=== PATIENT | female | born 1970 | race Caucasian/White ===

== ENCOUNTER 2017-01-21 12:34 | Day surgery (SDC) | payer MEDICAID ==
[2017-01-21] MEDS ORDERED: LR 1,000 ML IV ONE (12:57)
[2017-01-21] MEDS ORDERED: LIDOCAINE 1% 2 ML INJ ID PRN (12:57)
[2017-01-21 13:21] VITALS: PULSE 60
--- NOTE | 2017-01-21 14:14 | PDGENHP ---
History & Physical Chief Complaint: Iron deficiency. Ulcerative colitis History of Present Illness: Ulcerative colitis. Iron deficiency Pertinent Past, Social, Family History: No tobacco. No ETOH Relevant Physical Exam: NAD. CTA B/L. RRR witout m/r/g. ABD: Soft. NABS. NT/ ND. No R/G Cardiorespiratory Assessment: ASA II. Iron deficiency anemia. UC
[2017-01-21] MEDS ORDERED: PROPOFOL/EMULSION 500 MG/50 ML BOTTLE IV ONE (14:23)
[2017-01-21] MEDS ORDERED: LIDOCAINE 2% 100 MG/5 ML SYR ONE (14:23)
--- NOTE | 2017-01-21 15:20 | GIREPORT ---
[facility] - Endoscopy Department Patient Name: Ralph Schmitt Procedure Date: 01/21/2017 2:12 PM Patient Type: Outpatient Attending / ER Physician: Spencer Carter MD Procedure: Colonoscopy Indications: Iron deficiency anemia, Suspected Crohn's disease of the colon Providers: Spencer Carter MD Medicines: Propofol per Anesthesia Complications: No immediate complications. Description of Procedure: After obtaining informed consent, the scope was passed under direct vis ion. Throughout the procedure, the patient's blood pressure, pulse, and oxyg en saturations were monitored continuously. The Colonoscope was introduced through the anus and advanced to the cecum, identified by appendiceal orifice and ileocecal valve. The colonoscopy was technically difficult and complex due to restricted mobility of the colon, significant looping an d a tortuous colon. Successful completion of the procedure was aided by usi ng manual pressure and withdrawing and reinserting the scope. The patient tolerated the procedure well. Findings: The perianal and digital rectal examinations were normal. Pertinent negatives include normal sphincter tone and no palpable rectal lesions. A segmental and patchy area of severely altered vascular, eroded, infla med and ulcerated mucosa was found in the entire colon. Biopsies were taken with a cold forceps for histology. An 18 mm polypoid lesion was found in the proximal transverse colon. Th e lesion was multi-lobulated. No bleeding was present. Biopsies were take n with a cold forceps for histology. Localized pseudopolyps were found in the proximal sigmoid colon. Biopsi es were taken with a cold forceps for histology. Estimated Blood Loss: Estimated blood loss: none. Estimated blood loss was minimal. Post Op Diagnosis: - Altered vascular, eroded, inflamed and ulcerated mucosa in the entire examined colon. Biopsied. - Polypoid lesion in the proximal transverse colon. Biopsied. - Pseudopolyps in the proximal sigmoid colon. Incomplete resection. Res ected tissue retrieved. Biopsied. - I feel the exam is most consistent with crohn's colitis. - The cause for iron deficiency is likely her crohn's disease. The poly poid lesion in the proximal transverse colon is concerning to me for possibl y dysplasia and may need to be treated surgically. Recommendation: - Await pathology results. - Repeat colonoscopy (date not yet determined) for surveillance based o n pathology results. - Return to GI office at the next available appointment. - Resume previous diet. - Continue present medications. - Patient has a contact number available for emergencies. The signs and symptoms of potential delayed complications were discussed with the pat ient. Return to normal activities tomorrow. Written discharge instructions we re provided to the patient. - Thank you for allowing me to be involved in the care of your patient. Attending Participation: I personally performed the entire procedure without the assistance of a fellow, resident or surg ical sales assistant displays. Spencer Carter MD Spencer Carter MD 01/21/2017 3:20:08 PM This report has been signed electronicallyDavid MD Emma Number of Addenda: 0 Note Initiated On: 01/21/2017 2:12 PM Total Procedure Duration Time 0 hours 29 minutes 38 seconds [email or web address]
[2017-01-21 16:08] VITALS: RESP 16; TEMP 97.5
[2017-01-21 16:21] VITALS: BP 124/68
[2017-01-21 16:22] VITALS: O2SAT 96
== END 2017-01-21 16:00 | disposition home or self-care (01) ==
LOC: FSGY 12:34
PROVIDERS: ATTEND Internal Medicine Gastroenterology
PROC: 0DBN8ZX Excision of Sigmoid Colon, Via Natural or Artificial Opening Endoscopic, Diagnostic (ICD-10-PCS; principal; 2017-01-21 14:00)
PROC: 0DBK8ZX Excision of Ascending Colon, Via Natural or Artificial Opening Endoscopic, Diagnostic (ICD-10-PCS; principal; 2017-01-21 14:00)
PROC: 0DBH8ZX Excision of Cecum, Via Natural or Artificial Opening Endoscopic, Diagnostic (ICD-10-PCS; principal; 2017-01-21 14:00)
PROC: 0DBE8ZX Excision of Large Intestine, Via Natural or Artificial Opening Endoscopic, Diagnostic (ICD-10-PCS; principal; 2017-01-21 14:00)
PROC: 0DBL8ZX Excision of Transverse Colon, Via Natural or Artificial Opening Endoscopic, Diagnostic (ICD-10-PCS; principal; 2017-01-21 14:00)
DX: K51.90 Ulcerative colitis, unspecified, without complications (principal); D12.5 Benign neoplasm of sigmoid colon; D50.9 Iron deficiency anemia, unspecified
CPT/HCPCS: J2001; J2704